=== PATIENT | male | born 1965 | race Caucasian/White ===

== ENCOUNTER 2018-11-11 15:26 | Emergency (ER) | payer OTHER ==
[~2018-11-11] VITALS: Ht 162.6 cm; Wt 73.9 kg
[2018-11-11 15:36] VITALS: BP_SYST 151
[2018-11-11 16:25] VITALS: BP_SYST 160
== END 2018-11-11 16:25 | disposition home or self-care (01) ==
LOC: SED 15:26
DX: M10.9 Gout, unspecified (principal); F17.200 Nicotine dependence, unspecified, uncomplicated; R03.0 Elevated blood-pressure reading, without diagnosis of hypertension; Z71.6 Tobacco abuse counseling
CPT/HCPCS: 99283